=== PATIENT | female | born 2000 | race Caucasian/White ===

== ENCOUNTER 2021-06-24 16:48 | Emergency (ER) | payer OTHER ==
[2021-06-24] MEDS ORDERED: Ketorolac 30 MG/ML SDV IM ONE (17:27)
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
== END 2021-06-24 17:38 | disposition home or self-care (01) ==
LOC: JP.ED 16:48
DX: S09.90XA Unspecified injury of head, initial encounter (principal); Z88.0 Allergy status to penicillin; W22.8XXA Striking against or struck by other objects, initial encounter
CPT/HCPCS: 96372; 99283; J1885